=== PATIENT | female | born 1995 | race Hispanic/Latino ===

== ENCOUNTER 2023-09-03 07:31 | Outpatient (RCR) | payer BC, SELFPAY | END 2023-09-03 23:59 | disposition home or self-care (01) | LOC: RPT 07:31 | PROVIDERS: ATTENDING PHYSICIAN Obstetrics & Gynecology; PRIMARYCARE PHYSICIAN Physician Assistant Medical | DX: M62.89 Other specified disorders of muscle (principal); R10.2 Pelvic and perineal pain; R39.15 Urgency of urination; R35.1 Nocturia; N94.89 Other specified conditions associated with female genital organs and menstrual cycle; Z73.6 Limitation of activities due to disability | CPT/HCPCS: 97014; 97112; 97140; 97530 ==

== ENCOUNTER → 2023-09-20 10:34 | Outpatient (REF) | payer BC, SELFPAY ==
[2023-09-20 19:09] LABS: Urine Albumin Negative (Neg - Trace); Urine Bilirubin Negative (Negative); Urine Character Clear (Clear); Urine Color Yellow; Urine Glucose Negative (Negative); Urine Ketone Negative (Negative); Urine Leukocyte Negative (Negative); Urine Nitrite Negative (Negative); Urine Occult Blood Negative (Negative); Urine Urobilinogen Negative (Neg - 1+)
== END ==
LOC: CLAB 10:34
PROVIDERS: ATTENDING PHYSICIAN Obstetrics & Gynecology
DX: N39.0 Urinary tract infection, site not specified (principal)
CPT/HCPCS: 81003; 87086

== ENCOUNTER 2023-10-01 08:12 | Outpatient (RCR) | payer BC, SELFPAY | END 2023-10-01 23:59 | disposition home or self-care (01) | LOC: RPT 08:12 | PROVIDERS: Obstetrics & Gynecology; PRIMARYCARE PHYSICIAN Physician Assistant Medical | DX: M62.89 Other specified disorders of muscle (principal); R10.2 Pelvic and perineal pain; R39.15 Urgency of urination; R35.1 Nocturia; Z73.6 Limitation of activities due to disability; N94.89 Other specified conditions associated with female genital organs and menstrual cycle | CPT/HCPCS: 97014; 97110; 97112; 97140; 97530; 97535 ==

== ENCOUNTER 2023-10-30 17:26 | Outpatient (RCR) | payer BC, SELFPAY | END 2023-10-30 23:59 | disposition home or self-care (01) | LOC: RPT 17:26 | PROVIDERS: ATTENDING PHYSICIAN Physician Assistant Medical | DX: M62.89 Other specified disorders of muscle (principal); R10.2 Pelvic and perineal pain; R39.15 Urgency of urination; R35.1 Nocturia; Z73.6 Limitation of activities due to disability; N94.89 Other specified conditions associated with female genital organs and menstrual cycle | CPT/HCPCS: 97014; 97112; 97140; 97530 ==

== ENCOUNTER → 2023-11-02 11:09 | Outpatient (REF) | payer BC, SELFPAY ==
[2023-11-02 12:38] LABS: ALT (SGPT) 20 U/L (0-35); AST (SGOT) 23 U/L (14-36); Albumin 4.2 g/dl (3.5-5.0); Alkaline Phosphatase 76 U/L (38-126); Blood Urea Nitrogen 15 mg/dl (7-17); Calcium 9.4 mg/dl (8.4-10.2); Carbon Dioxide 24 mmol/L (22-30); Chloride 106 mmol/L (98-107); Glucose 81 mg/dl (70-99); Potassium 4.2 mmol/L (3.5-5.1); Sodium 139 mmol/L (135-145); Total Bilirubin 0.5 mg/dl (0.2-1.3); Total Protein 7.6 g/dl (6.3-8.2); eGFR > 60.00
[2023-11-02 13:00] LABS: FSH 4.7 mIU/ml; Prolactin 26.8 ng/ml (3.0-18.6)
[2023-11-02 13:02] LABS: Free T3 4.81 pg/ml (2.77-5.27); Total Thyroxine 7.71 ug/dl (5.5-11.0)
[2023-11-02 13:14] LABS: TSH 1.76 uIU/ml (0.47-4.68)
[2023-11-02 13:16] LABS: Testosterone, Total 55.4 ng/dl
[2023-11-03 11:54] LABS: DHEA Sulfate 230 ug/dL (99-340)
[2023-11-04 01:12] LABS: ANA, IgG Reflex to HEp-2 None Detected (None Detected)
== END ==
LOC: REG 11:09
PROVIDERS: ATTENDING PHYSICIAN Dermatology; FAMILY PHYSICIAN Physician Assistant Medical
DX: D89.89 Other specified disorders involving the immune mechanism, not elsewhere classified (principal)
CPT/HCPCS: 36415; 80053; 82627; 83001; 83002; 84146; 84403; 84436; 84443; 84481; 86038; 86140

== ENCOUNTER → 2023-11-08 07:19 | Outpatient (REF) | payer BC, SELFPAY ==
[2023-11-08 08:33] LABS: % Basophils 0.8 % (0-2); % Immature Granulocytes 0.2 % (0-0.5); Absolute Basophils 0.1 10^3/uL (0-0.2); Absolute Eosinophils 0.3 10^3/uL (0-0.7); Absolute Lymphocytes 3.2 10^3/uL (1.2-3.4); Absolute Monocytes 0.7 10^3/uL (0.1-0.6); Absolute Neutrophils 4.9 10^3/uL (1.4-6.5); Hematocrit 39.6 % (37.0-47.0); Hemoglobin 12.8 g/dL (12.0-16.0); Mean Corp Hgb Conc. 32.3 g/dL (33.0-37.0); Mean Corpuscular Hgb 28.3 pg (27.0-31.0); Mean Corpuscular Volume 87.4 fL (81.0-99.0); Nucleated Red Blood Cells % 0 %; Platelet Count 380 10^3/uL (130-400); Red Blood Cell Count 4.53 10^6/uL (4.20-5.40); Red Cell Dist. Width 13.2 % (11.5-14.5); White Blood Cell Count 9.2 10^3/uL (4.8-10.8)
[2023-11-08 08:52] LABS: Erythrocyte Sed Rate 24 mm/hour (0-20)
== END ==
LOC: REG 07:19
PROVIDERS: ATTENDING PHYSICIAN Nurse Practitioner Primary Care; FAMILY PHYSICIAN Physician Assistant Medical
DX: D89.89 Other specified disorders involving the immune mechanism, not elsewhere classified (principal)
CPT/HCPCS: 36415; 85025; 85652

== ENCOUNTER 2023-11-29 08:08 | Outpatient (RCR) | payer BC, SELFPAY | END 2023-11-29 23:59 | disposition home or self-care (01) | LOC: RPT 08:08 | PROVIDERS: ATTENDING PHYSICIAN Physician Assistant Medical | DX: M62.89 Other specified disorders of muscle (principal); R10.2 Pelvic and perineal pain; R39.15 Urgency of urination; R35.1 Nocturia; Z73.6 Limitation of activities due to disability; N94.89 Other specified conditions associated with female genital organs and menstrual cycle | CPT/HCPCS: 97014; 97110; 97112; 97140; 97530 ==

== ENCOUNTER 2024-01-01 15:44 | Outpatient (RCR) | payer BC, SELFPAY | END 2024-01-01 23:59 | disposition home or self-care (01) | LOC: RPT 15:44 | PROVIDERS: ATTENDING PHYSICIAN Physician Assistant Medical | DX: M62.89 Other specified disorders of muscle (principal); R12 Heartburn; R39.15 Urgency of urination; R35.1 Nocturia; Z73.6 Limitation of activities due to disability; N94.89 Other specified conditions associated with female genital organs and menstrual cycle | CPT/HCPCS: 97014; 97110; 97112; 97140; 97530 ==

== ENCOUNTER → 2024-01-18 09:00 | Outpatient (REF) | payer BC, SELFPAY ==
[2024-01-18 11:06] LABS: HDL Cholesterol 48 mg/dl; LDL Cholesterol, Calculated 110 mg/dl; Total Cholesterol 181 mg/dl (50-199); Triglyceride 117 mg/dl (10-149); Very Low Density Lipoprotein 23 mg/dl (0-30)
== END ==
LOC: REG 09:00
PROVIDERS: ATTENDING PHYSICIAN Physician Assistant Medical
DX: Z00.00 Encounter for general adult medical examination without abnormal findings (principal); E66.01 Morbid (severe) obesity due to excess calories; E28.2 Polycystic ovarian syndrome; F41.9 Anxiety disorder, unspecified; J45.909 Unspecified asthma, uncomplicated; J30.2 Other seasonal allergic rhinitis; Z86.69 Personal history of other diseases of the nervous system and sense organs; N23 Unspecified renal colic
CPT/HCPCS: 36415; 80061

== ENCOUNTER → 2024-01-24 10:28 | Outpatient (REF) | payer BC, SELFPAY | LOC: CPAP 10:28 | PROVIDERS: ATTENDING PHYSICIAN Nurse Practitioner Family | DX: Z01.419 Encounter for gynecological examination (general) (routine) without abnormal findings (principal); Z12.4 Encounter for screening for malignant neoplasm of cervix | CPT/HCPCS: G0123 ==

== ENCOUNTER 2024-01-30 11:16 | Outpatient (RCR) | payer BC, SELFPAY | END 2024-01-30 23:59 | disposition home or self-care (01) | LOC: RPT 11:16 | PROVIDERS: ATTENDING PHYSICIAN Physician Assistant Medical | DX: M62.89 Other specified disorders of muscle (principal); R10.2 Pelvic and perineal pain; R39.15 Urgency of urination; R35.1 Nocturia; Z73.6 Limitation of activities due to disability; N94.89 Other specified conditions associated with female genital organs and menstrual cycle | CPT/HCPCS: 97110; 97140; 97163 ==

== ENCOUNTER → 2024-02-19 15:27 | Outpatient (REF) | payer BC, SELFPAY | LOC: RAD 15:27 | PROVIDERS: ATTENDING PHYSICIAN Nurse Practitioner Family; FAMILY PHYSICIAN Physician Assistant Medical | DX: R10.2 Pelvic and perineal pain (principal) | CPT/HCPCS: 76830; 76856 ==

== ENCOUNTER 2024-02-26 17:48 | Outpatient (RCR) | payer BC, SELFPAY | END 2024-02-26 23:59 | disposition home or self-care (01) | LOC: RPT 17:48 | PROVIDERS: ATTENDING PHYSICIAN Physician Assistant Medical | DX: M62.89 Other specified disorders of muscle (principal); R10.2 Pelvic and perineal pain; R39.15 Urgency of urination; R35.1 Nocturia; Z73.6 Limitation of activities due to disability | CPT/HCPCS: 97140; 97530 ==

== ENCOUNTER 2024-03-26 16:02 | Outpatient (RCR) | payer BC, SELFPAY | END 2024-03-26 23:59 | disposition home or self-care (01) | LOC: RPT 16:02 | PROVIDERS: ATTENDING PHYSICIAN Physician Assistant Medical | DX: M62.89 Other specified disorders of muscle (principal); R10.2 Pelvic and perineal pain; R39.15 Urgency of urination; R35.1 Nocturia; Z73.6 Limitation of activities due to disability | CPT/HCPCS: 97110; 97140; 97530 ==

== ENCOUNTER → 2024-04-11 10:22 | Outpatient (REF) | payer BC, SELFPAY ==
[2024-04-11 12:01] LABS: ALT (SGPT) 18 U/L (0-35); AST (SGOT) 25 U/L (14-36); Albumin 4.5 g/dl (3.5-5.0); Alkaline Phosphatase 88 U/L (38-126); Blood Urea Nitrogen 16 mg/dl (7-17); Calcium 9.6 mg/dl (8.4-10.2); Carbon Dioxide 19 mmol/L (22-30); Chloride 104 mmol/L (98-107); Glucose 80 mg/dl (70-99); Potassium 4.4 mmol/L (3.5-5.1); Sodium 138 mmol/L (135-145); Total Bilirubin 0.6 mg/dl (0.2-1.3); Total Protein 7.9 g/dl (6.3-8.2); eGFR > 60.00
[2024-04-11 12:15] LABS: Prolactin 17.9 ng/ml (3.0-18.6)
[2024-04-11 12:34] LABS: Cortisol, Random 11.7 ug/dl
[2024-04-13 02:42] LABS: IGF-1 Z Score Calculation 0.6; Insulin-like Growth Factor I 223 ng/mL (98-305)
== END ==
LOC: REG 10:22
PROVIDERS: ATTENDING PHYSICIAN Internal Medicine Endocrinology, Diabetes & Metabolism; FAMILY PHYSICIAN Physician Assistant Medical
DX: E28.8 Other ovarian dysfunction (principal); L70.0 Acne vulgaris; E22.1 Hyperprolactinemia
CPT/HCPCS: 36415; 80053; 82533; 83498; 84146; 84305

== ENCOUNTER → 2024-04-13 08:52 | Outpatient (REF) | payer BC, SELFPAY ==
[2024-04-13 10:20] LABS: 24 Hour Urine Total Volume 1100 ml
[2024-04-13 10:36] LABS: 24 Hour Urine Creatinine 1.678 gm/day (0.8-1.8)
[2024-04-16 08:35] LABS: 24 Hour Urine Total Volume 1100 mL; Cortisol, Free Urine per 24Hr 15.2 ug/d (<=45.0); Creatinine, Urine 24 Hour 1683 mg/d (700-1600); Creatinine, Urine per Volume 153 mg/dL; Urine Collection Length 24 hr
== END ==
LOC: REG 08:52
PROVIDERS: ATTENDING PHYSICIAN Internal Medicine Endocrinology, Diabetes & Metabolism; FAMILY PHYSICIAN Physician Assistant Medical
DX: E28.8 Other ovarian dysfunction (principal); L70.0 Acne vulgaris; E22.1 Hyperprolactinemia
CPT/HCPCS: 81050; 82530; 82570

== ENCOUNTER 2024-04-16 16:03 | Outpatient (RCR) | payer BC, SELFPAY | END 2024-04-16 23:59 | disposition home or self-care (01) | LOC: RPT 16:03 | PROVIDERS: ATTENDING PHYSICIAN Physician Assistant Medical | DX: M62.89 Other specified disorders of muscle (principal); R10.2 Pelvic and perineal pain; R39.15 Urgency of urination; R35.1 Nocturia; Z73.6 Limitation of activities due to disability; N94.89 Other specified conditions associated with female genital organs and menstrual cycle | CPT/HCPCS: 97530 ==

== ENCOUNTER 2024-05-27 18:32 | Outpatient (RCR) | payer BC, SELFPAY | END 2024-05-27 23:59 | disposition home or self-care (01) | LOC: RPT 18:32 | PROVIDERS: ATTENDING PHYSICIAN Physician Assistant Medical | DX: M62.89 Other specified disorders of muscle (principal); R10.2 Pelvic and perineal pain; R39.15 Urgency of urination; R35.1 Nocturia; Z73.6 Limitation of activities due to disability | CPT/HCPCS: 97140; 97530 ==

== ENCOUNTER 2024-06-25 18:02 | Outpatient (RCR) | payer OTHER, SELFPAY | END 2024-06-25 23:59 | disposition home or self-care (01) | LOC: RPT 18:02 | PROVIDERS: ATTENDING PHYSICIAN Physician Assistant Medical | DX: M62.89 Other specified disorders of muscle (principal); R10.2 Pelvic and perineal pain; R39.15 Urgency of urination; R35.1 Nocturia; Z73.6 Limitation of activities due to disability; N94.89 Other specified conditions associated with female genital organs and menstrual cycle | CPT/HCPCS: 97140; 97163; 97530 ==

== ENCOUNTER 2024-07-30 19:04 | Outpatient (RCR) | payer OTHER, SELFPAY | END 2024-07-30 23:59 | disposition home or self-care (01) | LOC: RPT 19:04 | PROVIDERS: ATTENDING PHYSICIAN Physician Assistant Medical | DX: M62.89 Other specified disorders of muscle (principal); R10.2 Pelvic and perineal pain; R39.15 Urgency of urination; R35.1 Nocturia; Z73.6 Limitation of activities due to disability; N94.89 Other specified conditions associated with female genital organs and menstrual cycle | CPT/HCPCS: 97110; 97530 ==

== ENCOUNTER 2024-08-26 11:34 | Outpatient (RCR) | payer OTHER, SELFPAY | END 2024-08-26 23:59 | disposition home or self-care (01) | LOC: RPT 11:34 | PROVIDERS: ATTENDING PHYSICIAN Physician Assistant Medical | DX: M62.89 Other specified disorders of muscle (principal); R10.2 Pelvic and perineal pain; R39.15 Urgency of urination; R35.1 Nocturia; Z73.6 Limitation of activities due to disability; N94.89 Other specified conditions associated with female genital organs and menstrual cycle | CPT/HCPCS: 97014; 97112; 97140; 97530 ==

== ENCOUNTER 2024-09-15 07:41 | Outpatient (RCR) | payer OTHER, SELFPAY | END 2024-09-15 23:59 | disposition home or self-care (01) | LOC: RPT 07:41 | PROVIDERS: ATTENDING PHYSICIAN Physician Assistant Medical | DX: M62.89 Other specified disorders of muscle (principal); R10.2 Pelvic and perineal pain; R39.15 Urgency of urination; R35.1 Nocturia; Z73.6 Limitation of activities due to disability; N94.89 Other specified conditions associated with female genital organs and menstrual cycle | CPT/HCPCS: 97112; 97140; 97530 ==

== ENCOUNTER 2024-10-07 17:16 | Outpatient (RCR) | payer OTHER, SELFPAY | END 2024-10-07 23:59 | disposition home or self-care (01) | LOC: RPT 17:16 | PROVIDERS: ATTENDING PHYSICIAN Physician Assistant Medical | DX: M62.89 Other specified disorders of muscle (principal); R10.2 Pelvic and perineal pain; R39.15 Urgency of urination; R35.1 Nocturia; Z73.6 Limitation of activities due to disability; N94.89 Other specified conditions associated with female genital organs and menstrual cycle | CPT/HCPCS: 97112; 97530 ==

== ENCOUNTER 2024-11-19 18:03 | Outpatient (RCR) | payer OTHER, SELFPAY | END 2024-11-19 23:59 | disposition home or self-care (01) | LOC: RPT 18:03 | PROVIDERS: ATTENDING PHYSICIAN Physician Assistant Medical | DX: M62.89 Other specified disorders of muscle (principal); R10.2 Pelvic and perineal pain; R39.15 Urgency of urination; R35.1 Nocturia; Z73.6 Limitation of activities due to disability; N94.89 Other specified conditions associated with female genital organs and menstrual cycle | CPT/HCPCS: 97530 ==

== ENCOUNTER 2024-12-18 11:58 | Outpatient (RCR) | payer OTHER, SELFPAY | END 2024-12-18 23:59 | disposition home or self-care (01) | LOC: RPT 11:58 | PROVIDERS: ATTENDING PHYSICIAN Physician Assistant Medical | DX: M62.89 Other specified disorders of muscle (principal); R10.2 Pelvic and perineal pain; R39.15 Urgency of urination; R35.1 Nocturia; Z73.6 Limitation of activities due to disability; N94.89 Other specified conditions associated with female genital organs and menstrual cycle | CPT/HCPCS: 97530 ==

== ENCOUNTER 2025-04-02 10:30 | Outpatient (RCR) | payer OTHER, SELFPAY | END 2025-04-02 23:59 | disposition home or self-care (01) | LOC: RPT 10:30 | PROVIDERS: ATTENDING PHYSICIAN Physician Assistant Medical | DX: M62.89 Other specified disorders of muscle (principal); R10.2 Pelvic and perineal pain; R39.15 Urgency of urination; R35.1 Nocturia; Z73.6 Limitation of activities due to disability; N94.89 Other specified conditions associated with female genital organs and menstrual cycle | CPT/HCPCS: 97014; 97112; 97163; 97530 ==

== ENCOUNTER 2025-05-03 17:07 | Outpatient (RCR) | payer OTHER, SELFPAY | END 2025-05-03 23:59 | disposition home or self-care (01) | LOC: RPT 17:07 | PROVIDERS: ATTENDING PHYSICIAN Physician Assistant Medical | DX: M62.89 Other specified disorders of muscle (principal); R10.2 Pelvic and perineal pain; R39.15 Urgency of urination; R35.1 Nocturia; Z73.6 Limitation of activities due to disability; N94.89 Other specified conditions associated with female genital organs and menstrual cycle | CPT/HCPCS: 97014; 97140; 97530 ==

== ENCOUNTER 2025-07-05 07:17 | Outpatient (RCR) | payer OTHER, SELFPAY | END 2025-07-05 23:59 | disposition home or self-care (01) | LOC: RPT 07:17 | PROVIDERS: ATTENDING PHYSICIAN Physician Assistant Medical | DX: M62.89 Other specified disorders of muscle (principal); R10.2 Pelvic and perineal pain; R39.15 Urgency of urination; R10.20 Pelvic and perineal pain unspecified side; R35.1 Nocturia; Z73.6 Limitation of activities due to disability; N94.89 Other specified conditions associated with female genital organs and menstrual cycle | CPT/HCPCS: 97014; 97112; 97140; 97530 ==